=== PATIENT | male | born 1970 | race Caucasian/White ===

== ENCOUNTER 2021-04-03 18:55 | Emergency (ER) | payer SELFPAY ==
--- NOTE | ~2021-04-03 | XR_ITS ---
EXAMINATION: XR chest 1V portable DATE: 04/03/2021 19:51 INDICATION: Shortness of breath. TECHNIQUE: frontal view of the chest was obtained. COMPARISON: None FINDINGS: The lungs are clear with no focal airspace opacities, pulmonary edema, pleural effusion or pneumothor ax. Cardiomegaly. Spinal stimulator projecting over the right upper quadrant with leads extending cep halad project over the central canal of the mid to lower thoracic spine with distal tips at the level of T7-T8. IMPRESSION: 1. Cardiomegaly. Reviewed, dictated and finalized at location A. IMPRESSION: 1. Cardiomegaly.
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
[2021-04-03 19:04] VITALS: BP 161/90; PULSE 94; RESP 18; TEMP 36.7; O2SAT 97
--- NOTE | 2021-04-03 19:25 | ECG_ITS ---
Measurements Intervals [place] Rate: 84 P: 41 AK: 119 QRS: 2 QRSD: 91 T: -2 QT: 372 QTc: 440 Interpretive Statements SINUS RHYTHM WITH SHORT AK INTERVAL BORDERLINE T WAVE ABNORMALITY- INFERIOR LEADS BASELINE ARTIFACT- V1, V3-V5 BORDERLINE ECG Electronically Signed On 04-04-2021 6:13:16 CDT by Alexander Dinero D.O.
--- NOTE | 2021-04-03 19:35 | PC.NURSE ---
Pt to ct via cart.
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
[2021-04-03] MEDS: SODIUM CHLORIDE 0.9% IV 1,000 ML 999 ML IV CONT (20:02)
[2021-04-03] MEDS: LORazepam INJ (*CRX) 2 MG/ML VIAL 0.5 MG IV PUSH (20:03)
[2021-04-03 20:14] LABS: Basophils Percent Auto 0.2 % (0.2-1.2); Eosinophils Absolute Auto 0.2 K/mm3 (0-0.3); Eosinophils Percent Auto 1.6 % (0-4.4); Hematocrit 42.6 % (42.0-52.0); Hemoglobin 14.5 g/dL (14.0-18.0); Immature Granulocyte Absolute 0.03 K/mm3 (0.00-0.031); Immature Granulocyte Percent A 0.3 % (0-0.5); Lymphocytes Absolute Auto 2.32 K/mm3 (0.9-3.2); Lymphocytes Percent Auto 25.4 % (18.3-44.2); Mean Corpuscular Hemoglobin 30.2 pg (26-34); Mean Corpuscular Volume 88.8 fl (80-100); Mean Platelet Volume 11.5 fl (7.4-10.4); Monocytes Absolute Auto 1.2 K/mm3 (0.1-0.6); Monocytes Percent Auto 12.6 % (2.6-8.5); Neutrophils Absolute Auto 5.5 K/mm3 (1.3-6.7); Neutrophils Percent Auto 59.9 % (45.5-73.1); Platelet Count Result 151 k/mm3 (150-375); Red Cell Distribution Width 12.5 % (11.5-14.5); White Blood Count 9.2 K/mm3 (4.5-10.0)
[2021-04-03 21:02] LABS: Anion Gap 3 mmol/L (8-16); Blood Urea Nitrogen 7 mg/dL (9-20); Calcium 4.9 mg/dL (8.4-10.2); Carbon Dioxide 17 mmol/L (22-30); Chloride 121 mmol/L (98-107); Estimated CRCL calculation 120 ml/min; Estimated Glomerular Filt Rate > 60; Glucose 85 mg/dL (75-110); Potassium 2.5 mmol/L (3.4-5.0); Sodium 141 mmol/L (137-145)
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
[2021-04-03] MEDS: POTASSIUM CHLORIDE 20 MEQ PACKET (FOR LIQUID) 40 MEQ PO (21:33)
--- NOTE | 2021-04-03 21:35 | PC.NURSE ---
Pt provided potassium supplement and advised to sip and not chug. Pt voices his understanding. Remains alert and oriented x4 and US Felix remains at bedside. Pt remains alert and oriented x4 and in no obvious distress.
--- NOTE | 2021-04-03 21:56 | PC.NURSE ---
Pt tolerated potassium supplement well with no nausea or emesis noted. Pt ready for dc and updated on poc. All questions and concerns addressed.
--- NOTE | 2021-04-03 22:01 | PC.NURSE ---
Pt resting on cart. Marshalls remain at bedside. Pt noted to be alert and oriented x4. Breathing even and unlabored.
[2021-04-03 22:06] VITALS: BP 152/91; PULSE 70; RESP 18; TEMP 37; O2SAT 98
[2021-04-03 22:09] VITALS: BP 152/91; PULSE 70; RESP 18; TEMP 37; O2SAT 98
== END 2021-04-03 22:10 ==
PROVIDERS: Emergency Provider Family Medicine
DX: S09.90XA Unspecified injury of head, initial encounter (principal); E87.6 Hypokalemia; I10 Essential (primary) hypertension; I51.7 Cardiomegaly; M47.812 Spondylosis without myelopathy or radiculopathy, cervical region; R94.31 Abnormal electrocardiogram [ECG] [EKG]; W19.XXXA Unspecified fall, initial encounter
CPT/HCPCS: 36415; 70450; 71045; 72125; 80048; 85025; 93005; 96361; 96374; 99284; A9270; J2060; J7030; L0140